=== PATIENT | female | born 1995 | race Caucasian/White ===

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

== ENCOUNTER 2017-08-20 21:25 | Emergency (ER) | payer BC ==
[2017-08-20 22:01] VITALS: BP 117/76
[2017-08-20] MEDS ORDERED: Cephalexin CAP* 500 MG PO ONE (22:11)
[2017-08-20] MEDS ORDERED: Phenazopyridine TAB* 100 MG PO ONE (22:12)
--- NOTE | 2017-08-20 22:15 | UC ---
Complaint Female HPI - HPI Summary HPI Summary: Pt c/o sudden onset of burning with urination and "shooting pain in pelvic area " while voiding - History Of Current Complaint Chief Complaint: UCGU Stated Complaint: UTI Time Seen by Provider: 08/20/17 21:48 Hx Obtained From: Patient Hx Last Menstrual Period: 08/19/17 ?: No Onset/Duration: Sudden Onset, Lasting Days - 1, Still Present Timing: Constant Severity Initially: Mild Severity Currently: Mild Pain Intensity: 3 Character: Sharp, Dull, Burning Aggravating Factor(s): Urination Associated Signs And Symptoms: Positive: Negative - Risk Factors Ectopic Risk Factor: Negative Ovarian Torsion Risk Factor: Reproductive Age - Allergies/Home Medications Allergies/Adverse Reactions: Allergies Allergy/AdvReac Type Severity Reaction Status Date / Time No Known Allergies Allergy Verified 08/20/17 21:54 PMH/Surg Hx/FS Hx/Imm Hx Previously Healthy: Yes - Surgical History Surgical History: None - Family History Known Family History: Positive: None - neg for htn, Other - healthy parents Negative: Cardiac Disease, Diabetes, Renal Disease, Respiratory Disease - Social History Occupation: Student Lives: Dormitory/Roommates Alcohol Use: Occasionally Substance Use Type: None Smoking Status (MU): Never Smoked Tobacco Have You Smoked in the Last Year: No Review of Systems Constitutional: Negative Skin: Negative Eyes: Negative ENT: Negative Respiratory: Negative Cardiovascular: Negative Gastrointestinal: Negative Genitourinary: Dysuria, Frequency Motor: Negative Neurovascular: Negative Musculoskeletal: Negative Neurological: Negative Psychological: Negative Is Patient Immunocompromised?: No All Other Systems Reviewed And Are Negative: Yes Physical Exam Triage Information Reviewed: Yes Appearance: Well-Appearing Vital Signs: Initial Vital Signs Temp 98.7 F 08/20/17 21:54 Pulse 92 08/20/17 21:54 Resp 18 08/20/17 21:54 BP 117/76 08/20/17 21:54 Pulse Ox 100 08/20/17 21:54 Vital Signs Reviewed: Yes Eye Exam: Normal ENT Exam: Normal Neck exam: Normal Respiratory Exam: Normal Cardiovascular Exam: Normal Abdominal Exam: Normal Musculoskeletal Exam: Normal Neurological Exam: Normal Psychological Exam: Normal Skin Exam: Normal Complaint Female Dx - Differential Dx/Diagnosis Differential Diagnosis/HQI/PQRI: Urinary Tract Infection Provider Diagnoses: UTI Discharge - Discharge Plan Condition: Stable Disposition: HOME Prescriptions: Cephalexin CAP* [Keflex 500 CAP*] 500 mg PO Q12H #14 cap Phenazopyridine TAB* [Pyridium 100 mg TAB*] 100 mg PO Q8H #3 tab Patient Education Materials: Urinary Tract Infection in Women (ED) Referrals: [facility] [place] [facility] [Outside] Non Staff,Doctor [Primary Care Provider] -
== END 2017-08-20 22:26 | disposition home or self-care (01) ==
LOC: UCCORT 21:25
DX: N39.0 Urinary tract infection, site not specified (principal); Z72.89 Other problems related to lifestyle
CPT/HCPCS: 81003; 87086; 99212; A9270-GY; G0463

== ENCOUNTER 2017-10-19 16:26 | Emergency (ER) | payer BC ==
[2017-10-19 16:56] VITALS: BP 103/56
--- NOTE | 2017-10-19 17:03 | UC ---
Complaint Female HPI - HPI Summary HPI Summary: Pt presents with urinary frequency, sharp pain when starting urination, and feeling of inability to empty her bladder since yesterday. Denies fever, chills , SOB, chest pain, abdominal pain, n/v/d/c. - History Of Current Complaint Chief Complaint: UCGU Stated Complaint: URINARY Hx Obtained From: Patient Hx Last Menstrual Period: 10/15/17 Onset/Duration: Sudden Onset Timing: Constant Pain Intensity: 0 - Allergies/Home Medications Allergies/Adverse Reactions: Allergies Allergy/AdvReac Type Severity Reaction Status Date / Time No Known Allergies Allergy Verified 10/19/17 16:50 Home Medications: Home Medications L.acidoph,Paracasei, B.lactis [Probiotic] 1 each PO DAILY 10/19/17 [History Confirmed 10/19/17] PMH/Surg Hx/FS Hx/Imm Hx Previously Healthy: Yes - Surgical History Surgical History: None - Family History Known Family History: Positive: None - neg for htn, Other - healthy parents Negative: Cardiac Disease, Diabetes, Renal Disease, Respiratory Disease - Social History Occupation: Student Lives: Dormitory/Roommates Alcohol Use: Occasionally Substance Use Type: None Smoking Status (MU): Never Smoked Tobacco Have You Smoked in the Last Year: No Review of Systems Constitutional: Negative Skin: Negative Respiratory: Negative Cardiovascular: Negative Gastrointestinal: Negative Genitourinary: Dysuria, Frequency Motor: Negative Neurovascular: Negative Musculoskeletal: Negative Neurological: Negative Psychological: Negative All Other Systems Reviewed And Are Negative: Yes Physical Exam - Summary Physical Exam Summary: GENERAL: NAD. WDWN. No pain distress. SKIN: No rashes, sores, ulcers, masses, lesions. NECK: Supple. Nontender. No lymphadenopathy. CHEST: CTAB. No r/r/w. No accessory muscle use. Breathing comfortably and in no distress. CV: RRR. Without m/r/g. Pulses intact. Brisk cap refill. ABDOMEN: Soft. NTTP. No distention or guarding. No organomegaly. No CVA tenderness. Bowel sounds present x4. NEURO: Alert. CN II-XII grossly intact. PSYCH: Age appropriate behavior. Triage Information Reviewed: Yes Vital Signs: Initial Vital Signs Temp 98.9 F 10/19/17 16:51 Pulse 88 10/19/17 16:51 Resp 16 04/06/18 16:51 BP 103/56 10/19/17 16:51 Pulse Ox 100 10/19/17 16:51 Complaint Female Dx - Course Course Of Treatment: UA with trace leuks and 2+ blood - pt currently on period. Will send for culture and treat with keflex as her last urine culture showed strep. - Differential Dx/Diagnosis Provider Diagnoses: UTI Discharge - Sign-Out/Discharge Documenting (check all that apply): Discharge - Discharge Plan Condition: Stable Disposition: HOME Prescriptions: Cephalexin CAP* [Keflex CAP*] 500 mg PO BID #10 cap Patient Education Materials: Urinary Tract Infection in Women (ED) Referrals: Non Staff,Doctor [Primary Care Provider] - Additional Instructions: If you develop a fever, shortness of breath, chest pain, new or worsening symptoms - please call your PCP or go to the ED. - Billing Disposition and Condition Condition: STABLE Disposition: HOME
--- NOTE | 2017-10-22 07:50 | UC ---
- Progress Note Progress Note: please call this pt and inform her cx was negative for growth. pt can stop abx. if sx persist or re-cur, pt should be re-evaluated. Discharge - Sign-Out/Discharge Documenting (check all that apply): Post-Discharge Follow Up - Discharge Plan Condition: Stable Disposition: HOME Prescriptions: Cephalexin CAP* [Keflex CAP*] 500 mg PO BID #10 cap Patient Education Materials: Urinary Tract Infection in Women (ED) Referrals: Non Staff,Doctor [Primary Care Provider] - Additional Instructions: If you develop a fever, shortness of breath, chest pain, new or worsening symptoms - please call your PCP or go to the ED. - Billing Disposition and Condition Condition: STABLE Disposition: HOME
== END 2017-10-19 17:14 | disposition home or self-care (01) ==
LOC: UCCORT 16:26
DX: N39.0 Urinary tract infection, site not specified (principal)
CPT/HCPCS: 81003; 87086; 99212; G0463

== ENCOUNTER 2018-11-08 12:32 | Emergency (ER) | payer BC ==
[2018-11-08 13:09] VITALS: BP 101/59
--- NOTE | 2018-11-08 13:23 | UC ---
Respiratory Complaint HPI - HPI Summary HPI Summary: cough x 1 week cough is productive with yellow sputum + sore throat, nasal congestion , pnd high fever of 102 + fatigue, no joint or body aches, no sob - History of Current Complaint Chief Complaint: UCGeneralIllness Stated Complaint: FEVER, COUGH, SORE THROAT Time Seen by Provider: 11/08/18 13:03 Hx Obtained From: Patient Hx Last Menstrual Period: 09/09/18 ?: No Onset/Duration: Gradual Onset, Lasting Weeks - 7, Still Present Timing: Constant Severity Initially: Moderate Severity Currently: Moderate Pain Intensity: 6 Character: Cough: Productive Aggravating Factors: Exertion, Deep Breaths Alleviating Factors: Nothing Associated Signs And Symptoms: Positive: Fever, Chills, URI, Nasal Congestion. Negative: Dyspnea, Wheezing, Edema - Allergies/Home Medications Allergies/Adverse Reactions: Allergies Allergy/AdvReac Type Severity Reaction Status Date / Time No Known Allergies Allergy Verified 11/08/18 13:08 PMH/Surg Hx/FS Hx/Imm Hx Previously Healthy: Yes - Surgical History Surgical History: None - Family History Known Family History: Positive: None - neg for htn, Other - healthy parents Negative: Cardiac Disease, Diabetes, Renal Disease, Respiratory Disease - Social History Alcohol Use: Occasionally Substance Use Type: None Smoking Status (MU): Never Smoked Tobacco Have You Smoked in the Last Year: No Review of Systems All Other Systems Reviewed And Are Negative: Yes Constitutional: Positive: Fever, Chills, Fatigue Skin: Positive: Negative Eyes: Positive: Negative ENT: Positive: Sore Throat, Nasal Discharge Respiratory: Positive: Cough Cardiovascular: Positive: Negative Is Patient Immunocompromised?: No Physical Exam Triage Information Reviewed: Yes Appearance: Well-Appearing, No Pain Distress, Well-Nourished Vital Signs: Initial Vital Signs Temp 97.4 F 11/08/18 13:04 Pulse 106 11/08/18 13:04 Resp 18 11/08/18 13:04 BP 101/59 11/08/18 13:04 Pulse Ox 100 11/08/18 13:04 Vital Signs Reviewed: Yes Eye Exam: Normal Eyes: Positive: Conjunctiva Clear ENT: Positive: Normal ENT inspection, Hearing grossly normal, Pharynx normal, Nasal congestion, TMs normal. Negative: TM bulging, TM dull, TM red, Tonsillar swelling, Tonsillar exudate Neck exam: Normal Neck: Positive: Supple, Nontender, No Lymphadenopathy Respiratory: Positive: Chest non-tender, Lungs clear, Normal breath sounds Cardiovascular: Positive: RRR, No Murmur, Pulses Normal Respiratory Course/Dx - Differential Dx/Diagnosis Provider Diagnosis: Bronchitis Discharge - Sign-Out/Discharge Documenting (check all that apply): Patient Departure All imaging exams completed and their final reports reviewed: No Studies - Discharge Plan Condition: Stable Disposition: HOME Prescriptions: Azithromycin TAB* [Zithromax TAB (Z-JANKI) 250 mg #6 tabs] 2 tab PO .TODAY, THEN 1 DAILY #1 janki Patient Education Materials: Acute Bronchitis (ED) Forms: *School Release Referrals: No Primary Care Phys,NOPCP [Primary Care Provider] - If Needed - Billing Disposition and Condition Condition: STABLE Disposition: Home
== END 2018-11-08 13:21 | disposition home or self-care (01) ==
LOC: UCCORT 12:32
DX: J40 Bronchitis, not specified as acute or chronic (principal); J02.9 Acute pharyngitis, unspecified
CPT/HCPCS: 99212; G0463